=== PATIENT | male | born 1970 | race African-American/Black ===

== ENCOUNTER 2021-03-25 19:46 | Emergency (ER) | payer SELFPAY ==
[~2021-03-25] VITALS: Ht 175.3 cm; Wt 102.1 kg
[~2021-03-25 19:46] MED LIST: NO HOME MEDICATIONS; ZYMAR OPHTH SOL5 ML OP
[2021-03-25] MEDS ORDERED: NORCO 325 MG-51 TAB PO (23:17)
[2021-03-26] MEDS ORDERED: CRUTCHES MC (00:44)
[2021-03-26 00:57] VITALS: BP 129/69; PULSE 80; TEMP 98.3
== END 2021-03-26 00:57 | disposition home or self-care (01) ==
LOC: COL.ER 19:46
DX: S82.831A Other fracture of upper and lower end of right fibula, initial encounter for closed fracture (principal); F17.200 Nicotine dependence, unspecified, uncomplicated; X50.1XXA Overexertion from prolonged static or awkward postures, initial encounter; Y93.01 Activity, walking, marching and hiking